=== PATIENT | female | born 1950 | race Caucasian/White ===

== ENCOUNTER 2016-11-08 07:51 | Day surgery (SDC) | payer BC ==
[~2016-11-08] VITALS: Ht 167.6 cm; Wt 90.7 kg
[~2016-11-08 07:51] MED LIST: CEFAZOLIN SOD 1 GM/ ISO 50 ML PREMIX IV ONE
[2016-11-08] MEDS ORDERED: LR 1,000 ML IV SCH (13:52)
[2016-11-08] MEDS ORDERED: DEXAMETHASONE SOD PHOSPHATE 4 MG/ML VIAL ONE (14:00)
[2016-11-08] MEDS ORDERED: ONDANSETRON HCL 4 MG/2 ML VIAL ONE (14:00)
[2016-11-08] MEDS ORDERED: ROCURONIUM BROMIDE 10 MG/ML (ZEMURON) ONE (14:00)
[2016-11-08] MEDS ORDERED: PROPOFOL 200MG/ 20ML VIAL (DIPRIVAN) IV ONE (14:00)
[2016-11-08] MEDS ORDERED: HYDROmorphone 2 MG/ML VIAL IVP PRN ×2 (14:00)
[2016-11-08] MEDS ORDERED: LR 1,000 ML IV.SOLN IV ONE (14:00)
[2016-11-08] MEDS ORDERED: MIDAZOLAM HCL 5 MG/5 ML VIAL ONE (14:00)
[2016-11-08] MEDS ORDERED: MEPERIDINE HCL/PF 25 MG/ML DISP.SYRIN IVP PRN (14:00)
[2016-11-08] MEDS ORDERED: fentaNYL CITRATE 250 MCG/5 ML AMP ONE (14:00)
[2016-11-08] MEDS ORDERED: fentaNYL CITRATE/PF 100 MCG/2 ML AMP ONE (14:00)
[2016-11-08] MEDS ORDERED: SEVOFLURANE 15 MIN GAS INH ONE (14:00)
[2016-11-08] MEDS ORDERED: HYDROmorphone 1 MG INJ. 1 MG/ML AMPUL IVP PRN ×2 (14:00→15:00)
[2016-11-08] MEDS ORDERED: KETOROLAC TROMETHAMINE 30 MG VIAL ONE (14:00)
[2016-11-08] MEDS ORDERED: D5/0.45 NS 1,000 ML IV SCH (14:55)
[2016-11-08] MEDS ORDERED: HYDROcodone/ACETAMIN 5-325 MG TAB (NORCO/ VICODIN) PO PRN ×2 (15:00)
[2016-11-08 15:45] VITALS: BP_SYST 105
== END 2016-11-08 16:55 | disposition home or self-care (01) ==
LOC: SDS 07:51 → SMU 07:51 → EDSTATUS 10:10 → SDS 16:55
PROVIDERS: ATTEND Colon & Rectal Surgery
DX: C50.911 Malignant neoplasm of unspecified site of right female breast (principal); E78.5 Hyperlipidemia, unspecified; I10 Essential (primary) hypertension; M17.9 Osteoarthritis of knee, unspecified; M25.561 Pain in right knee
CPT/HCPCS: 19281; 19301; 38525; 76098; 78195; 88305; 88307; 88329; 88333; A9541; J0690; J1100; J1885; J2250; J2405; J2704; J3010 ×2; J7120; 19081